=== PATIENT | female | born 1940 ===

== ENCOUNTER 2018-05-27 03:11 | Inpatient (IN) | payer MEDICARE, OTHER ==
[2018-05-27 03:11] VITALS: BMI 22.3
--- NOTE | 2018-05-27 03:30 | C.PDOC ---
History Of Present Illness 77 year old female presents to the ER with daughter for a complaint of generalized weakness and nausea for the past few days. As per daughter, patient was admitted to the hospital for back pain and discharged on 05/12/18, since then she has had increasing generalized weakness and poorly controlled BP. She saw her PMD on 05/20/18 who advised her to continue her current medications. Denies chest pain, SOB, fever, chills, or Hx of anxiety. Time Seen by Provider: 05/27/18 03:30 Chief Complaint (Nursing): High Blood Pressure History Per: Patient History/Exam Limitations: no limitations Onset/Duration Of Symptoms: Days Current Symptoms Are (Timing): Still Present Associated Symptoms: Other (Nausea) Quality Of Symptoms: Asymptomatic Exacerbating Factor(s): Pos: None Recent travel outside of the [place]: No Past Medical History Reviewed: Historical Data, Nursing Documentation, Vital Signs Vital Signs: Last Vital Signs Temp 97.6 F 05/27/18 03:20 Pulse 93 H 05/27/18 03:20 Resp 16 05/27/18 03:20 BP 221/80 H 05/27/18 03:20 Pulse Ox 99 05/27/18 03:20 - Medical History PMH: Back Problems, Bronchitis, HTN, Hypercholesterolemia, Hypothyroidism, TIA Denies: HIV, Chronic Kidney Disease Surgical History: Appendectomy - [facility] Procedures ENDOSC POLYPECTOMY OF LG INTEST (08/12/13) ESOPHAGOGASTRODUODENOSCOPY [EGD] W/CLOSED BIOPSY (08/05/13) INJECT/INFUSE NEC (01/09/14) ULTRASONOGRAPHY OF RIGHT AND LEFT HEART, TRANSESOPHAGEAL (05/09/18) Family History: States: Unknown Family Hx - Social History Hx Alcohol Use: No Hx Substance Use: No - Immunization History Hx Tetanus Toxoid Vaccination: No Hx Influenza Vaccination: Yes Hx Pneumococcal Vaccination: Yes Review Of Systems Constitutional: Positive for: Weakness. Negative for: Fever, Chills Eyes: Negative for: Pain, Vision Change ENT: Negative for: Ear Pain, Throat Pain Cardiovascular: Negative for: Chest Pain, Palpitations Respiratory: Negative for: Cough, Shortness of Breath, SOB with Excertion, Pleuritic Pain, Sputum Gastrointestinal: Positive for: Nausea. Negative for: Vomiting, Abdominal Pain, Diarrhea, Constipation, Melena, Hematochezia, Hematemesis Genitourinary: Negative for: Dysuria, Hematuria Skin: Negative for: Rash, Jaundice Neurological: Positive for: Weakness. Negative for: Numbness, Incoordination, Change in Speech, Confusion, Seizures, Altered Mental Status, Headache Psych: Negative for: Depression, Psychosis Physical Exam - Physical Exam Appears: Well, Non-toxic Skin: Normal Color, Warm, Dry Head: Atraumatic, Normacephalic Eye(s): bilateral: Normal Inspection, PERRL, EOMI Ear(s): Bilateral: Normal Nose: Normal Oral Mucosa: Moist Tongue: Normal Appearing Lips: Normal Appearing Neck: Normal, Normal ROM, No Midline Cervical Tenderness, No Paracervical Tenderness, Supple, Other (no meningeal signs) Chest: Symmetrical, No Tenderness Cardiovascular: Rhythm Regular Respiratory: Normal Breath Sounds, No Rales, No Rhonchi, No Wheezing Gastrointestinal/Abdominal: Normal Exam, Soft, No Tenderness, No Organomegaly, No Mass, No Distention, No Guarding Back: No CVA Tenderness Extremity: Normal ROM (x4), No Tenderness, No Calf Tenderness Extremity: Bilateral: Atraumatic Neurological/Psych: Oriented x3, Normal Speech, Normal Cognition, Normal Cranial Nerves, No Cerebellar Signs, Normal Motor, Normal Sensation Other Neurological Findings: No Facial Palsy Extremity: Right: No Drift, Left: No Drift, Upper: No Drift, Lower: No Drift ED Course And Treatment - Laboratory Results Result Diagrams: 05/27/18 04:41 O2 Sat by Pulse Oximetry: 99 (Room air) Pulse Ox Interpretation: Normal - CT Scan/US CT Head Other Rad Studies (CT/US): Read By Radiologist, Radiology Report Reviewed CT/US Interpretation: CT scan of the head. CLINICAL HISTORY: Headache. Dizziness. TECHNIQUE: Multiple axial CT images were obtained through the brain without IV contrast material. COMMENTS: 3.2x2.1 cm uncomplicated left temporal arachnoid cyst. There is normal configuration of sella turcica. There are no i ntra or extra-axial collections. There is no mass effect or midline shift. There is no evidence of hematoma formation. No hydrocephalus is present. The ventricles are symmetrical. No abnormal calcifications are present. There is diffuse age-appropriate cerebellar and cerebral atrophy with proportionally dilated ventricles and cortical sulci. There are bilateral periventricular and subcortical white matter hypolucencies compatible with mild chronic microvascular disease. Otherwise, no significant focal abnormalities are seen either in the posterior fossa or supratentorial compartment. IMPRESSION: 1. Age-appropriate cerebellar and cerebral atrophy. 2. Mild chronic microvascular disease. Uncomplicated left temporal arachnoid cyst. 3. No evidence of acute intracranial pathology. Medical Decision Making Medical Decision Makin yr old female w/ hx of TIA, Hypok weakness, HTN, HLD p/w diffuse weakness. No one sided weakness or slurred speech. No slurred speech. Per daughter and pt this has occured previously and pt was diagnosed with hypok weakness. She denies any CP, sob, and only notes mild lightheadedness. Weakness is not upgoing or downgoing. No abnl finger to nose. Blood work, CXR, CT head, flu swab, and urinalysis ordered. Antivert and labetalol administered. 0544 CT unremarkable XR unremarkable. labs largley unremarkable abd remain non-ttp, pt however states she is still to weak to stand. When prompted: Pt is noted to be anti gravity with 4/5 strength in all extremities. No CVAT appreciate consult w/ Dr. Dela Cruz: no admitting privileges at [facility] appreciate consult w/ Dr. Loyola: to admit to his service, endorsed pending Disposition - Disposition Disposition Time: 05:51 Condition: GOOD Instructions: Weakness (ED) Forms: [facility] (Singaporean) - Clinical Impression Clinical Impression: Weakness - Scribe Statement The provider has reviewed the documentation as recorded by the Scribe Honorio Kathleen All medical record entries made by the Scribe were at my direction and persona lly dictated by me. I have reviewed the chart and agree that the record accurately reflects my personal performance of the history, physical exam, medical decision making, and the department course for this patient. I have also personally directed, reviewed, and agree with the discharge instructions and disposition.
[2018-05-27] MEDS ORDERED: Labetalol 25mg/5ml Syringe IVP STA (03:44)
[2018-05-27] MEDS ORDERED: Labetalol 5mg/ml (4ml) ONE (03:56)
[2018-05-27 04:36] LABS: TROPONIN I 0.019 ng/mL (0.00-0.120)
[2018-05-27 04:37] LABS: VENOUS BLOOD GAS BASE EXCESS 5.4 mmol/L (0.0-2.0); VENOUS BLOOD GAS PCO2 24 mmHg (40-60); VENOUS BLOOD GAS PO2 36 mm/Hg (30-55); VENOUS BLOOD PH 7.63 (7.32-7.43)
[2018-05-27 04:44] LABS: BASO % 0.5 % (0.0-2.0); EOS # 0.1 K/uL (0.0-0.7); EOS % 1.4 % (0.0-4.0); HEMOGLOBIN 13.3 g/dL (11.0-16.0); LYMPH # 1.6 K/uL (1.0-4.3); LYMPH % 26.5 % (20.0-40.0); MEAN CELL VOLUME 82.6 fL (81.0-99.0); MEAN CORPUSCULAR HEMOGLOBIN 28.6 pg (27.0-31.0); MEAN CORPUSCULAR HGB CONC 34.6 g/dL (33.0-37.0); MEAN PLATELET VOLUME 8.6 fL (7.2-11.7); MONO # 0.4 K/uL (0.0-0.8); MONO % 7.3 % (0.0-10.0); NEUT # 3.9 K/uL (1.8-7.0); NEUT % 64.3 % (50.0-75.0); RBC 4.66 Mil/uL (3.80-5.20); RED CELL DISTRIBUTION WIDTH 13.9 % (11.5-14.5); WHITE BLOOD COUNT 6.1 K/uL (4.8-10.8)
[2018-05-27 06:09] LABS: SQUAMOUS EPITHIAL < 1 /hpf (0-5); URINE BACTERIA RARE (<OCC); URINE BILIRUBIN NEGATIVE (NEGATIVE); URINE BLOOD NEGATIVE (NEGATIVE); URINE CLARITY Hazy (Clear); URINE COLOR Straw (YELLOW); URINE GLUCOSE (UA) NORMAL (Normal); URINE LEUKOCYTE ESTERASE NEG Leu/uL (Negative); URINE PROTEIN NEGATIVE (NEGATIVE); URINE UROBILINOGEN NORMAL mg/dL (0.2-1.0)
--- NOTE | 2018-05-27 07:32 | RAD ---
Date of service: 05/27/2018 HISTORY: htn COMPARISON: None available. FINDINGS: LUNGS: No active pulmonary disease. PLEURA: No significant pleural effusion identified, no pneumothorax apparent. CARDIOVASCULAR: No aortic atherosclerotic calcification present. Normal cardiac size. No pulmonary vascular congestion. OSSEOUS STRUCTURES: Nonspecific sclerotic density proximal right humeral diaphysis, possibly endosteal. VISUALIZED UPPER ABDOMEN: Normal. OTHER FINDINGS: None. IMPRESSION: No acute cardiopulmonary disease appreciable.
--- NOTE | 2018-05-27 08:24 | CP.PCM.PN ---
Subjective - Date & Time of Evaluation Date of Evaluation: 05/27/18 Time of Evaluation: 09:00 - Subjective Subjective: Ms. Truong is a 77 year old female with a PMHx of TIA, HTN, Hypokalemia, HLD, Hypothyroidism, and PFO who presents with complaints of generalized weakness (prominent in extremities), Nausea, Dizziness, and 1 tremor episode since 05/09/18. Associated symptoms include low appetite, 1 episode of NBNB vomiting, and tremors. Patient also admits to losing 6-8 lbs in the last 3 weeks. Patient's daughter took BP at home and found it to be elevated at 196/96 post her BP meds. Patient is normally able to do all her ADL's and IADL's. She does not walk without any assisted device Today, patient still complains of generalized weakness and dizziness. She denies any Chest pain, Headache, Palpitations, shortness of breath, abdominal pain, changes in bowel habits, or urinary symptoms. PMHx: As stated above PSHx: Polypectomy (2013), Endoscopy (2012) Allergies: Codeine, Fentanyl, Morphine, Moxifloxacin, Shellfish derived Social Hx: Denies tobacco, EtoH or illicit drug use Hos: [facility] w/ Similar symptoms in April FamHx: Brother - HTN Meds: Per Sep. PMD: Dr. Arnav Hinkle Cardio: Dr. Zendejas Objective - Vital Signs/Intake and Output Vital Signs (last 24 hours): Temp Pulse Resp BP Pulse Ox 97.9 F 65 20 151/74 H 95 05/27/18 08:06 05/27/18 08:06 05/27/18 08:06 05/27/18 08:06 05/27/18 08:06 - Labs Labs: 05/27/18 04:41 - Constitutional Appears: Non-toxic, No Acute Distress - Head Exam Head Exam: ATRAUMATIC, NORMAL INSPECTION, NORMOCEPHALIC - Eye Exam Eye Exam: EOMI, Normal appearance - ENT Exam ENT Exam: Mucous Membranes Moist - Neck Exam Neck Exam: Normal Inspection. absent: Lymphadenopathy, Tenderness - Respiratory Exam Respiratory Exam: Accessory Muscle Use, Clear to Ausculation Bilateral, NORMAL BREATHING PATTERN. absent: Rhonchi, Wheezes - Cardiovascular Exam Cardiovascular Exam: RRR, +S1, +S2, Murmur - GI/Abdominal Exam GI & Abdominal Exam: Soft, Normal Bowel Sounds. absent: Tenderness, Organo megaly - Extremities Exam Extremities Exam: Normal Inspection. absent: Pedal Edema - Neurological Exam Neurological Exam: Alert, Awake, Oriented x3, Reflexes Normal. absent: Motor Sensory Deficit Neuro motor strength exam: Left Upper Extremity: 5, Right Upper Extremity: 5, Left Lower Extremity: 5, Right Lower Extremity: 5 - Psychiatric Exam Psychiatric exam: Normal Affect, Normal Mood - Skin Skin Exam: Dry, Intact, Normal Color, Warm Assessment and Plan - Assessment and Plan (Free Text) Assessment: 77 year old female with a PMHx of TIA, HTN, Hypokalemia, HLD, Hypothyroidism, and PFO admitted for evaluation and treatment of generalized weakness Plan: Failure to Thrive DDx: Malignancy vs Uncontrolled Hypothyrodism EKG (Admission): NSR CXR (Admission): Negative Head CT (Admission): No acute intracranial hemorrhage. Mild-moderate chronic periventricular white matter ischemic changes. 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 Questionable versus tiny chronic lacunar-type infarct dilated perivascular space left inferior basal ganglia.. Questionable chronic ischemic changes within the brainstem and upper stormy. Note that the possibility of a small hyperacute infarct cannot be excluded. Moderate generalized volume loss. ED Course: Meclizine Once, Zofran ONce, Lavetalol ONCE, NPO GI Consulted (Dr. Welsh), Recs Appreciated -Tumor Markers Ordered, F/U Meds: NS @ 80mls/hr PFO Cardiology Consulted (Dr. Zendejas), Recs Appreciated Based on CLOSURE I trial, no need for intervention at this time. Meds: Rosuvastatin 5mg Daily ASA 81 Daily Labile HTN Cardiology Consulted (Dr. Zendejas), Recs Appreciated Losartan DC in setting of recent recall <50% ICA stenosis bilaterally per carotid U/S performed 04/30 Renal Artery Duplex: PENDING Meds: Start Amlodipine 10mg PO Daily Start Lisinopril 40mg PO Daily Hypothyroidism Elevated TSH (5.60) w/ normal Free T4 (1.12) Possible Cause of symptoms Consider increasing Synthroid Dosage Meds: Levothyroxine 50mcg Daily Dizziness Will Consider starting Meclizine vs Valium. Lower Back Pain Meds: Tramadol 25mg TID PRN. Proph Heparin NPO Patient seen and discussed with Attending (Dr. Abad Ness, PGY-2
[2018-05-27 09:05] LABS: ALB/GLOB RATIO 1.3 (1.0-2.1); ALBUMIN 4.2 g/dL (3.5-5.0); ALT/SGPT 41 U/L (9-52); AST/SGOT 63 U/L (14-36); BLOOD UREA NITROGEN 20 mg/dL (7-17); CALCIUM 9.8 mg/dl (8.6-10.4); GFR NON-AFRICAN AMERICAN > 60
[2018-05-27] MEDS: Levothyroxine 50 MCG TAB PO SCH (09:20)
[2018-05-27] MEDS: Sodium Chloride 0.9% 1,000 ML IV SCH ×2 (09:22→21:40)
[2018-05-27] MEDS ORDERED: Potassium Chloride 20 mEq ER Tab PO ONE (09:30)
--- NOTE | 2018-05-27 09:47 | CT ---
Date of service: 05/27/2018 PROCEDURE: CT HEAD WITHOUT CONTRAST. HISTORY: htn, dizzy COMPARISON: No prior study available for comparison TECHNIQUE: Axial computed tomography images were obtained through the head/brain without intravenous contrast. Radiation dose:. Total exam DLP = 856.94 mGy-cm. This CT exam was performed using one or more of the following dose reduction techniques: Automated exposure control, adjustment of the mA and/or kV according to patient size, and/or use of iterative reconstruction technique. FINDINGS: HEMORRHAGE: No intracranial hemorrhage. BRAIN: Mild-moderate chronic periventricular white matter ischemic changes. 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 Questionable versus tiny chronic lacunar-type infarct dilated perivascular space left inferior basal ganglia.. Questionable chronic ischemic changes within the brainstem and upper stormy. Note that the possibility of a small hyperacute infarct cannot be excluded. Moderate generalized volume loss. Vascular calcifications both carotid siphons and vertebral arteries. VENTRICLES: No obstructive hydrocephalus. CALVARIUM: No acute calvarial fractures. The. PARANASAL SINUSES: Minimal mucosal thickening noted within the frontal sinus as well as a few ethmoid air cells.. MASTOID AIR CELLS: Unremarkable as visualized. No inflammatory changes. OTHER FINDINGS: Changes of bilateral cataract surgery. IMPRESSION: No acute intracranial hemorrhage. Mild-moderate chronic periventricular white matter ischemic changes. 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 Questionable versus tiny chronic lacunar-type infarct dilated perivascular space left inferior basal ganglia.. Questionable chronic ischemic changes within the brainstem and upper stormy. Note that the possibility of a small hyperacute infarct cannot be excluded. Moderate generalized volume loss.
[2018-05-27] MEDS ORDERED: Tramadol 25 mg PO PRN (11:11)
--- NOTE | 2018-05-27 15:13 | CP.PCM.CON ---
History of Present Illness - History of Present Illness History of Present Illness: Lukas Amin, PGY-[address] Zendejas, Cardiology Ms. Truong is a pleasant [address] Zendejas with PMHx of Hypothroidism, HTN, HLD and TIA who presents with full body weakness for multiple days. Patient reports fatigue especially in all extremities. Patient reports, dizziness, diaphoresis, shakes, and nausea that prompted her to come in for evaluation. Patient denies current chest pain, palpitations, shortness of breath, leg swelling. Per echo report on 05/12/18, patient has small PFO with L to R shunt with EF of 55-60%. Mild MR and TR. Past Patient History - Infectious Disease Hx of Infectious Diseases: None - Past Medical History & Family History Past Medical History?: Yes - Past Social History Smoking Status: Never Smoked - CARDIAC Hx Cardiac Disorders: Yes Hx Hypercholesterolemia: Yes Hx Hypertension: Yes - PULMONARY Hx Respiratory Disorders: Yes Hx Bronchitis: Yes - NEUROLOGICAL Hx Neurological Disorder: Yes Hx Transient Ischemic Attacks (TIA): Yes - HEENT Hx HEENT Problems: Yes Other/Comment: Episodes of ON and Off of lossing half of her R visual brandon after the TIA - RENAL Hx Chronic Kidney Disease: No - ENDOCRINE/METABOLIC Hx Endocrine Disorders: Yes Hx Hypothyroidism: Yes - HEMATOLOGICAL/ONCOLOGICAL Hx Blood Disorders: No Hx Human Immunodeficiency Virus (HIV): No - INTEGUMENTARY Hx Dermatological Problems: No - MUSCULOSKELETAL/RHEUMATOLOGICAL Hx Musculoskeletal Disorders: Yes Hx Back Pain: Yes Hx Falls: No - GASTROINTESTINAL Hx Gastrointestinal Disorders: No - GENITOURINARY/GYNECOLOGICAL Hx Genitourinary Disorders: No - PSYCHIATRIC Hx Psychophysiologic Disorder: No Hx Substance Use: No - SURGICAL HISTORY Hx Surgeries: Yes Hx Appendectomy: Yes - ANESTHESIA Hx Anesthesia: Yes Hx Anesthesia Reactions: No Hx Malignant Hyperthermia: No Has any member of the family had a problem w/ anesthesia?: No Meds Allergies/Adverse Reactions: Allergies Allergy/AdvReac Type Severity Reaction Status Date / Time codeine Allergy DIZZINESS Verified 05/27/18 03:24 fentanyl Allergy DIZZINESS Verified 05/27/18 03:24 morphine Allergy DIZZINESS Verified 05/27/18 03:24 moxifloxacin HCl Allergy RASH Verified 05/27/18 03:24 [From Avelox] shellfish derived Allergy ANAPHYLAXIS Verified 05/27/18 03:24 - Medications Medications: Current Medications Heparin Sodium (Porcine) (Heparin) 5,000 units SC Q12 [facility] Last Admin: 05/27/18 09:20 Dose: 5,000 units Sodium Chloride (Sodium Chloride 0.9%) 1,000 mls @ 80 mls/hr IV .[id number] [facility] Last Admin: 05/27/18 09:22 Dose: 80 mls/hr Levothyroxine Sodium (Synthroid) 50 mcg PO DAILY [facility] Last Admin: 05/27/18 09:20 Dose: 50 mcg Losartan Potassium (Cozaar) 50 mg PO BID [facility] Last Admin: 05/27/18 09:24 Dose: Not Given Tramadol HCl (Ultram) 25 mg PO TID PRN PRN Reason: Pain, (0-10) Physical Exam - Constitutional Appears: Non-toxic, No Acute Distress, Cachectic - Head Exam Head Exam: ATRAUMATIC, NORMOCEPHALIC - Eye Exam Eye Exam: EOMI, Normal appearance - ENT Exam ENT Exam: Mucous Membranes Moist - Respiratory Exam Respiratory Exam: Decreased Breath Sounds, Clear to Auscultation Bilateral. absent: Rales, Rhonchi, Wheezes - Cardiovascular Exam Cardiovascular Exam: RRR, +S1, +S2 - GI/Abdominal Exam GI & Abdominal Exam: Soft - Extremities Exam Extremities exam: Negative for: pedal edema - Back Exam Back exam: absent: CVA tenderness (L), CVA tenderness (R) - Neurological Exam Neurological exam: Alert Results - Vital Signs Recent Vital Signs: Last Vital Signs Temp 97.9 F 05/27/18 08:06 Pulse 65 05/27/18 08:06 Resp 20 05/27/18 08:06 BP 151/74 H 05/27/18 08:06 Pulse Ox 95 05/27/18 08:06 - Labs Result Diagrams: 05/27/18 04:41 05/27/18 05:03 Labs: Laboratory Results - last 24 hr 05/27/18 05/27/18 05/27/18 03:24 03:44 04:06 WBC RBC Hgb Hct MCV MCH MCHC RDW Plt Count MPV Neut % (Auto) Lymph % (Auto) [place] % (Auto) Eos % (Auto) Baso % (Auto) Neut # (Auto) Lymph # (Auto) [place] # (Auto) Eos # (Auto) Baso # (Auto) pO2 VBG pH VBG pCO2 VBG HCO3 VBG Total CO2 VBG O2 Sat (Calc) VBG Base Excess VBG Potassium Sodium Chloride Glucose Lactate Potassium Carbon Dioxide Anion Gap BUN Creatinine Est GFR ( Amer) Est GFR (Non-Af Amer) POC Glucose (mg/dL) 141 H Random Glucose Hemoglobin A1c Calcium Magnesium Total Bilirubin AST ALT Alkaline Phosphatase Troponin I 0.0190 Total Protein Albumin Globulin Albumin/Globulin Ratio Lipase 117 Free T4 TSH 3rd Generation 5.60 H Venous Blood Potassium Urine Color Urine Clarity Urine pH Ur Specific [place] Urine Protein Urine Glucose (UA) Urine Ketones Urine Blood Urine Nitrate Urine Bilirubin Urine Urobilinogen Ur Leukocyte Esterase Urine WBC (Auto) Urine RBC (Auto) Ur Squamous Epith Cells Urine Bacteria Influenza Typ A,B (EIA) Negative for flu a/b 05/27/18 05/27/18 05/27/18 04:15 04:41 05:03 WBC 6.1 RBC 4.66 Hgb 13.3 Hct 38.5 MCV 82.6 MCH 28.6 MCHC 34.6 RDW 13.9 Plt Count 233 MPV 8.6 Neut % (Auto) 64.3 Lymph % (Auto) 26.5 [place] % (Auto) 7.3 Eos % (Auto) 1.4 Baso % (Auto) 0.5 Neut # (Auto) 3.9 Lymph # (Auto) 1.6 [place] # (Auto) 0.4 Eos # (Auto) 0.1 Baso # (Auto) 0.0 pO2 36 VBG pH 7.63 H VBG pCO2 24 L VBG HCO3 28.7 VBG Total CO2 25.9 VBG O2 Sat (Calc) 83.2 H VBG Base Excess 5.4 H VBG Potassium 3.4 L Sodium 139.0 140 Chloride 103.0 100 Glucose 144 H Lactate 2.1 Potassium 3.5 L Carbon Dioxide 28 Anion Gap 15 BUN 20 H Creatinine 0.8 Est GFR ( Amer) > 60 Est GFR (Non-Af Amer) > 60 POC Glucose (mg/dL) Random Glucose 141 H Hemoglobin A1c Calcium 9.8 Magnesium 2.5 H Total Bilirubin 0.5 AST 63 H D ALT 41 Alkaline Phosphatase 86 Troponin I Total Protein 7.5 Albumin 4.2 Globulin 3.3 Albumin/Globulin Ratio 1.3 Lipase Free T4 TSH 3rd Generation Venous Blood Potassium 3.4 L Urine Color Urine Clarity Urine pH Ur Specific [place] Urine Protein Urine Glucose (UA) Urine Ketones Urine Blood Urine Nitrate Urine Bilirubin Urine Urobilinogen Ur Leukocyte Esterase Urine WBC (Auto) Urine RBC (Auto) Ur Squamous Epith Cells Urine Bacteria Influenza Typ A,B (EIA) 05/27/18 05/27/18 05/27/18 05:59 13:50 13:50 WBC RBC Hgb Hct MCV MCH MCHC RDW Plt Count MPV Neut % (Auto) Lymph % (Auto) [place] % (Auto) Eos % (Auto) Baso % (Auto) Neut # (Auto) Lymph # (Auto) [place] # (Auto) Eos # (Auto) Baso # (Auto) pO2 VBG pH VBG pCO2 VBG HCO3 VBG Total CO2 VBG O2 Sat (Calc) VBG Base Excess VBG Potassium Sodium Chloride Glucose Lactate Potassium Carbon Dioxide Anion Gap BUN Creatinine Est GFR ( Amer) Est GFR (Non-Af Amer) POC Glucose (mg/dL) Random Glucose Hemoglobin A1c 5.6 Calcium Magnesium Total Bilirubin AST ALT Alkaline Phosphatase Troponin I Total Protein Albumin Globulin Albumin/Globulin Ratio Lipase Free T4 1.12 TSH 3rd Generation Venous Blood Potassium Urine Color Straw Urine Clarity Hazy Urine pH 8.0 Ur Specific [place] 1.005 Urine Protein Negative Urine Glucose (UA) Normal Urine Ketones Negative Urine Blood Negative Urine Nitrate Negative Urine Bilirubin Negative Urine Urobilinogen Normal Ur Leukocyte Esterase Neg Urine WBC (Auto) 1 Urine RBC (Auto) 1 Ur Squamous Epith Cells < 1 Urine Bacteria Rare Influenza Typ A,B (EIA) Assessment & Plan - Assessment and Plan (Free Text) Assessment: 77 F with PMHx HTN, HLD and PFO recognzied s/p cryptogenic TIA who presents with full body fatigue and labile blood pressures. Labile HTN vitals q2 to keep log of BP stop Losartan in setting of recent recall, replace with Amlodipine 10 mg PO and Lisinopril 40 mg PO F/u renal artery duplex study <50% ICA stenosis bilaterally per carotid U/S performed 04/30 EKG NSR @ 89 bpm, no ST wave changes on prelim. read, f/u final read PFO Based on CLOSURE I trial, no need for intervention at this time. Begin Aspirin 81 mg daily, Rosuvastatin 5 mg daily Patient seen, case reviewed and plan approved by Dr. Zendejas. Further recs per Dr. Zendejas. Lukas Amin, PGY-1
[2018-05-28 07:43] LABS: BASO % 0.5 % (0.0-2.0); EOS # 0.1 K/uL (0.0-0.7); LYMPH # 1.1 K/uL (1.0-4.3); LYMPH % 23.8 % (20.0-40.0); MEAN CELL VOLUME 83.7 fL (81.0-99.0); MEAN CORPUSCULAR HEMOGLOBIN 28.7 pg (27.0-31.0); MEAN CORPUSCULAR HGB CONC 34.3 g/dL (33.0-37.0); MEAN PLATELET VOLUME 8.3 fL (7.2-11.7); MONO # 0.3 K/uL (0.0-0.8); MONO % 7.6 % (0.0-10.0); NEUT % 66.1 % (50.0-75.0); RBC 4.18 Mil/uL (3.80-5.20); RED CELL DISTRIBUTION WIDTH 14.1 % (11.5-14.5); WHITE BLOOD COUNT 4.5 K/uL (4.8-10.8)
[2018-05-28 07:46] LABS: INR 1.1; PROTHROMBIN TIME 12.1 SECONDS (9.7-12.2)
[2018-05-28 08:31] LABS: ALB/GLOB RATIO 1.4 (1.0-2.1); ALBUMIN 3.8 g/dL (3.5-5.0); ALT/SGPT 35 U/L (9-52); AST/SGOT 40 U/L (14-36); BLOOD UREA NITROGEN 13 mg/dL (7-17); CALCIUM 8.9 mg/dl (8.6-10.4); GFR NON-AFRICAN AMERICAN > 60
[2018-05-28] MEDS: Levothyroxine 50 MCG TAB PO SCH (10:00)
[2018-05-28] MEDS: Sodium Chloride 0.9% 1,000 ML IV SCH ×2 (10:00→21:29)
[2018-05-28] MEDS ORDERED: Lactated Ringer's 1,000 ML IV ONE (10:45)
[2018-05-28] MEDS ORDERED: Propofol 10 mg/ml Inj (20 ML) ONE (10:47)
--- NOTE | 2018-05-28 12:53 | CARD ---
APPROVED REPORT Date of service: 05/27/2018 EKG Measurement Heart [id number] CO [id number] <Conclusion> Normal sinus rhythm Normal ECG
[2018-05-28] MEDS ORDERED: Peg-Electrolyte Oral Soln 4L (Golytely) PO ONE (13:00)
--- NOTE | 2018-05-28 13:35 | CP.PCM.PN ---
Subjective - Date & Time of Evaluation Date of Evaluation: 05/28/18 Time of Evaluation: 13:35 - Subjective Subjective: PGY2 Progress note for Dr. Loyola Patient was seen and examined at bedside in no acute distress. Patient reports feeling weak, abdominal pain, and loss of appetite for 2+ months. She also states she lost about 8 lbs. The patient denies chest pain, palpitations, dyspnea, cough, nausea, vomiting, fevers, headaches, dysuria, and diarrhea. Objective - Vital Signs/Intake and Output Vital Signs (last 24 hours): Temp Pulse Resp BP Pulse Ox 98.5 F 76 15 125/98 H 99 05/28/18 11:02 05/28/18 11:32 05/28/18 11:32 05/28/18 11:32 05/28/18 11:32 Intake and Output: 05/28/18 05/28/18 06:59 18:59 Intake Total 640 Balance 640 - Medications Medications: Current Medications Amlodipine Besylate (Norvasc) 10 mg PO DAILY [facility] Last Admin: 05/28/18 10:00 Dose: 10 mg Aspirin (Aspirin Chewable) 81 mg PO DAILY [facility] Last Admin: 05/28/18 10:01 Dose: Not Given Bisacodyl (Dulcolax) 10 mg PO ONCE ONE Stop: 05/28/18 17:01 Fluconazole (Diflucan) 100 mg PO DAILY [facility]; Protocol Last Admin: 05/28/18 12:40 Dose: 100 mg Heparin Sodium (Porcine) (Heparin) 5,000 units SC Q12 [facility] Last Admin: 05/28/18 10:01 Dose: Not Given Sodium Chloride (Sodium Chloride 0.9%) 1,000 mls @ 80 mls/hr IV .[id number] [facility] Last Admin: 05/28/18 10:00 Dose: Not Given Levothyroxine Sodium (Synthroid) 50 mcg PO DAILY [facility] Last Admin: 05/28/18 10:00 Dose: Not Given Lisinopril (Zestril) 40 mg PO DAILY [facility] Last Admin: 05/28/18 10:00 Dose: 40 mg Metoclopramide HCl (Reglan) 5 mg IVP Q6H [facility] Last Admin: 05/28/18 12:40 Dose: 5 mg Rosuvastatin Calcium (Crestor) 5 mg PO HS [facility] Last Admin: 05/27/18 21:39 Dose: 5 mg Tramadol HCl (Ultram) 25 mg PO TID PRN PRN Reason: Pain, (0-10) - Labs Labs: 05/28/18 07:32 05/28/18 07:32 PT 12.1 SECONDS (9.7-12.2) 05/28/18 07:32 INR 1.1 05/28/18 07:32 APTT 39 SECONDS (21-34) H 05/28/18 07:32 - Constitutional Appears: No Acute Distress - Head Exam Head Exam: ATRAUMATIC, NORMAL INSPECTION - Eye Exam Eye Exam: EOMI, Normal appearance - ENT Exam ENT Exam: Mucous Membranes Moist - Respiratory Exam Respiratory Exam: Clear to Ausculation Bilateral, NORMAL BREATHING PATTERN. absent: Rales, Rhonchi, Wheezes, Respiratory Distress - Cardiovascular Exam Cardiovascular Exam: REGULAR RHYTHM, +S1, +S2, Murmur Assessment and Plan - Assessment and Plan (Free Text) Plan: 77 year old female with a PMHx of TIA, HTN, Hypokalemia, HLD, Hypothyroidism, and PFO admitted for evaluation and treatment of generalized weakness Failure to Thrive - DDx: Malignancy vs Uncontrolled Hypothyrodism EKG (Admission): NSR - CXR (Admission): Negative - Head CT (Admission): No acute intracranial hemorrhage. Mild-moderate chronic periventricular white matter ischemic changes. 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 Questionable versus tiny chronic lacunar-type infarct dilated perivascular space left inferior basal ganglia.. Questionable chronic ischemic changes within the brainstem and upper stormy. Note that the possibility of a small hyperacute infarct cannot be excluded. Moderate generalized volume loss. - ED Course: Meclizine Once, Zofran Once, Labetalol ONCE, NPO - GI Consulted (Dr. Welsh), Recs Appreciated * Tumor markers: f/u * s/p EGD: candidiasis esophagitis, small hiatal hernia, erthematous mucosa in antrum (biopsied), erythematous duodenopathy * started prilosec 40mg po dialy for 8 weeks, sucralfate 1 gm tablet po qid for 8 weeks, and diflucan 100 mg po. * Scheduled for colonoscopy on , 05/29/18. - NS @ 80mls/hr PFO - Cardiology Consulted (Dr. Zendejas), Recs Appreciated Based on CLOSURE I trial, no need for intervention at this time. Meds: Rosuvastatin 5mg Daily, ASA 81 Daily HTN - Cardiology Consulted (Dr. Zendejas), Recs Appreciated * Losartan DC in setting of recent recall - <50% ICA stenosis bilaterally per carotid U/S performed 04/30 - Renal Artery Duplex: PENDING Meds: * Start Amlodipine 10mg PO Daily * Start Lisinopril 40mg PO Daily Hypothyroidism - Elevated TSH (5.60) w/ normal Free T4 (1.12) - Meds: Levothyroxine 50mcg Daily Dizziness - Will Consider starting Meclizine vs Valium. Lower Back Pain - Renal duplex: f/u - Tramadol 25mg TID PRN. Prophylaxis - DVT: Heparin SC, SCDs - GI: prilosec 40mg po daily for 8 weeks - CLL, NPO after dinner for colonoscopy All medical management per Dr. Loyola.
[2018-05-28] MEDS ORDERED: Bisacodyl 5mg EC Tab PO ONE (17:00)
[2018-05-29 07:06] LABS: BASO % 0.5 % (0.0-2.0); EOS % 0.7 % (0.0-4.0); HEMOGLOBIN 12.7 g/dL (11.0-16.0); LYMPH # 1.4 K/uL (1.0-4.3); LYMPH % 22.3 % (20.0-40.0); MEAN CELL VOLUME 83.3 fL (81.0-99.0); MEAN CORPUSCULAR HEMOGLOBIN 28.8 pg (27.0-31.0); MEAN CORPUSCULAR HGB CONC 34.6 g/dL (33.0-37.0); MEAN PLATELET VOLUME 8.2 fL (7.2-11.7); MONO # 0.3 K/uL (0.0-0.8); MONO % 4.7 % (0.0-10.0); NEUT # 4.5 K/uL (1.8-7.0); NEUT % 71.8 % (50.0-75.0); RBC 4.42 Mil/uL (3.80-5.20); RED CELL DISTRIBUTION WIDTH 14.1 % (11.5-14.5); WHITE BLOOD COUNT 6.2 K/uL (4.8-10.8)
--- NOTE | 2018-05-29 07:49 | CP.PCM.PN ---
Subjective - Date & Time of Evaluation Date of Evaluation: 05/29/18 Time of Evaluation: 07:49 - Subjective Subjective: PGY2 Progress note for Dr. Loyola Patient was seen and examined at bedside in no acute distress. The patient states she feels weak, but no longer has abdominal pain. The patient denies chest pain, palpitations, dyspnea, cough, nausea, vomiting, fevers, headaches, dysuria, and diarrhea. Objective - Vital Signs/Intake and Output Vital Signs (last 24 hours): Temp Pulse Resp BP Pulse Ox 98.3 F 78 20 127/69 96 05/29/18 00:00 05/29/18 00:00 05/29/18 00:00 05/29/18 00:00 05/29/18 00:00 Intake and Output: 05/29/18 05/29/18 06:59 18:59 Intake Total 3240 640 Output Total 1500 Balance 1740 640 - Medications Medications: Current Medications Amlodipine Besylate (Norvasc) 10 mg PO DAILY [facility] Last Admin: 05/28/18 10:00 Dose: 10 mg Aspirin (Aspirin Chewable) 81 mg PO DAILY [facility] Last Admin: 05/28/18 10:01 Dose: Not Given Fluconazole (Diflucan) 100 mg PO DAILY [facility]; Protocol Last Admin: 05/28/18 12:40 Dose: 100 mg Heparin Sodium (Porcine) (Heparin) 5,000 units SC Q12 [facility] Last Admin: 05/28/18 21:27 Dose: 5,000 units Sodium Chloride (Sodium Chloride 0.9%) 1,000 mls @ 80 mls/hr IV .[id number] [facility] Last Admin: 05/28/18 21:29 Dose: 80 mls/hr Levothyroxine Sodium (Synthroid) 50 mcg PO DAILY [facility] Last Admin: 05/28/18 10:00 Dose: Not Given Lisinopril (Zestril) 40 mg PO DAILY [facility] Last Admin: 05/28/18 10:00 Dose: 40 mg Metoclopramide HCl (Reglan) 5 mg IVP Q6H [facility] Last Admin: 05/29/18 05:43 Dose: 5 mg Rosuvastatin Calcium (Crestor) 5 mg PO HS [facility] Last Admin: 05/28/18 21:26 Dose: 5 mg Tramadol HCl (Ultram) 25 mg PO TID PRN PRN Reason: Pain, (0-10) - Labs Labs: 05/29/18 06:53 05/28/18 07:32 PT 12.1 SECONDS (9.7-12.2) 05/28/18 07:32 INR 1.1 05/28/18 07:32 APTT 39 SECONDS (21-34) H 05/28/18 07:32 - Constitutional Appears: No Acute Distress - Head Exam Head Exam: ATRAUMATIC, NORMAL INSPECTION - Eye Exam Eye Exam: EOMI, Normal appearance - ENT Exam ENT Exam: Mucous Membranes Moist - Respiratory Exam Respiratory Exam: NORMAL BREATHING PATTERN. absent: Rales, Rhonchi, Wheezes, Respiratory Distress - Cardiovascular Exam Cardiovascular Exam: REGULAR RHYTHM, +S1, +S2 - GI/Abdominal Exam GI & Abdominal Exam: Soft, Normal Bowel Sounds. absent: Distended, Firm, Guarding, Tenderness - Extremities Exam Extremities Exam: Normal Inspection. absent: Pedal Edema, Tenderness - Neurological Exam Neurological Exam: Alert, Awake, Oriented x3 - Psychiatric Exam Psychiatric exam: Normal Affect, Normal Mood - Skin Skin Exam: Dry, Normal Color, Warm Assessment and Plan - Assessment and Plan (Free Text) Plan: 77 year old female with a PMHx of TIA, HTN, Hypokalemia, HLD, Hypothyroidism, and PFO admitted for evaluation and treatment of generalized weakness Failure to Thrive - DDx: Malignancy vs Uncontrolled Hypothyrodism - EKG (Admission): NSR - CXR (Admission): Negative - Head CT (Admission): No acute intracranial hemorrhage. Mild-moderate chronic periventricular white matter ischemic changes. 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 Questionable versus tiny chronic lacunar-type infarct dilated perivascular space left inferior basal ganglia.. Questionable chronic ischemic changes within the brainstem and upper stormy. Note that the possibility of a small hyperacute infarct cannot be excluded. Moderate generalized volume loss. - ED Course: Meclizine Once, Zofran Once, Labetalol ONCE, NPO - GI Consulted (Dr. Welsh), Recs Appreciated * Tumor markers: CA19-9: elevated 53.9; CEA 1.9; Ca 125 <5.5 * s/p EGD: candidiasis esophagitis, small hiatal hernia, erthematous mucosa in antrum (biopsied), erythematous duodenopathy * started prilosec 40mg po dialy for 8 weeks, sucralfate 1 gm tablet po qid for 8 weeks, and diflucan 100 mg po. * Scheduled for colonoscopy on 05/29/18- follow up results - NS @ 80mls/hr PFO - Cardiology Consulted (Dr. Zendejas), Recs Appreciated Based on CLOSURE I trial, no need for intervention at this time. Meds: Rosuvastatin 5mg Daily, ASA 81 Daily HTN - Cardiology Consulted (Dr. Zendejas), Recs Appreciated * Losartan DC in setting of recent recall - <50% ICA stenosis bilaterally per carotid U/S performed 04/30 - Renal Artery Duplex: PENDING Meds: * Start Amlodipine 10mg PO Daily * Start Lisinopril 40mg PO Daily Hypothyroidism - Elevated TSH (5.60) w/ normal Free T4 (1.12) - Meds: Levothyroxine 50mcg Daily Dizziness - Will Consider starting Meclizine vs Valium. Lower Back Pain - Renal duplex: f/u - Tramadol 25mg TID PRN. Prophylaxis - DVT: Heparin SC, SCDs - GI: prilosec 40mg po daily for 8 weeks - CLL, NPO after dinner for colonoscopy All medical management per Dr. Loyola.
[2018-05-29 08:15] LABS: ALB/GLOB RATIO 1.3 (1.0-2.1); ALT/SGPT 36 U/L (9-52); AST/SGOT 45 U/L (14-36); BLOOD UREA NITROGEN 8 mg/dL (7-17); CALCIUM 8.7 mg/dl (8.6-10.4); GFR NON-AFRICAN AMERICAN > 60
--- NOTE | 2018-05-29 09:18 | HP ---
HISTORY OF PRESENT ILLNESS: 77 year-old female chief complaint weakness, fatigue, tiredness. The patient came to the ER, advised admission., evaluation, bit nausea. PHYSICAL EXAMINATION: GENERAL: The patient is awake, alert, and oriented. VITAL SIGNS: Temperature 98, pulse 90. HEENT: Within normal limits. NECK: Supple. CHEST: Symmetrical. HEART: Regular. ABDOMEN: Soft. EXTREMITIES: No edema. ASSESSMENT AND PLAN: Patient suffers from Gastritis, weakness. The patient needs supportive care. Chirag Loyola MD
[2018-05-29] MEDS: Levothyroxine 50 MCG TAB PO SCH (09:40)
[2018-05-29] MEDS ORDERED: Propofol 10 mg/ml Inj (20 ML) ONE (10:35)
[2018-05-29] MEDS ORDERED: Lactated Ringer's 500 ML IV ONE ×2 (10:36)
--- NOTE | 2018-05-29 12:08 | VASCLAB ---
Date of service: 05/28/2018 PROCEDURE: Renal Artery Duplex Scan HISTORY: Hypertension COMPARISON: None available. TECHNIQUE: Real-time ultrasonography evaluation of the renal arteries were performed. Comparison is made to the aorta. Report prepared by EWELINA Blair FINDINGS: AORTA: Patent. Peak systolic velocity 83 centimeters/second RIGHT RENAL ARTERY: Renal artery to aorta ratio: 2.2 * Proximal segment: Patent. Peak systolic velocity 145 centimeters/second * Mid segment: Patent. Peak systolic velocity 184 centimeters/second * Distal segment: Patent. Peak systolic velocity 155 centimeters/second Other findings: Right Kidney measures approximately 11.12 centimeters. LEFT RENAL ARTERY: Renal artery to aorta ratio: 1.7 * Proximal segment: Patent. Peak systolic velocity 132 centimeters/second * Mid segment: Patent. Peak systolic velocity 138 centimeters/second * Distal segment: Patent. Peak systolic velocity 114 centimeters/second Other findings: Left Kidney measures approximately 10.81 centimeters. IMPRESSION: No evidence of hemodynamically significant stenosis involving the renal arteries. Patent bilateral renal veins. Anechoic mass noted in the left kidney measuring 1.60 x 1.94 cm, possibly a cyst.
[2018-05-29] MEDS: Bisacodyl 5mg EC Tab PO SCH (12:19)
[2018-05-29] MEDS: Magnesium Citrate Oral SOL (300 ml) PO SCH ×2 (14:19→16:59)
[2018-05-29] MEDS ORDERED: Potassium Chloride 20 mEq/15 ml LIQ UD PO ONE (14:45)
--- NOTE | 2018-05-29 18:29 | CP.PCM.PN ---
Subjective - Date & Time of Evaluation Date of Evaluation: 05/29/18 Time of Evaluation: 18:28 - Subjective Subjective: feeling tired Objective - Vital Signs/Intake and Output Vital Signs (last 24 hours): Temp Pulse Resp BP Pulse Ox 98.1 F 72 20 109/65 96 05/29/18 16:00 05/29/18 16:00 05/29/18 16:00 05/29/18 16:00 05/29/18 16:00 Intake and Output: 05/29/18 05/29/18 06:59 18:59 Intake Total 3240 1580 Output Total 1500 Balance 1740 1580 - Medications Medications: Current Medications Amlodipine Besylate (Norvasc) 10 mg PO DAILY [facility] Last Admin: 05/29/18 12:22 Dose: 10 mg Aspirin (Aspirin Chewable) 81 mg PO DAILY [facility] Last Admin: 05/29/18 09:40 Dose: Not Given Bisacodyl (Dulcolax) 10 mg PO Q24H [facility] Last Admin: 05/29/18 12:19 Dose: 10 mg Fluconazole (Diflucan) 100 mg PO DAILY [facility]; Protocol Last Admin: 05/29/18 09:40 Dose: Not Given Heparin Sodium (Porcine) (Heparin) 5,000 units SC Q12 [facility] Last Admin: 05/28/18 21:27 Dose: 5,000 units Levothyroxine Sodium (Synthroid) 50 mcg PO 0630 [facility] Lisinopril (Zestril) 40 mg PO DAILY [facility] Last Admin: 05/29/18 12:22 Dose: 40 mg Magnesium Citrate (Citrate Of Mag) 60 ml PO TID [facility] Last Admin: 05/29/18 16:59 Dose: 60 ml Metoclopramide HCl (Reglan) 5 mg IVP Q6H [facility] Last Admin: 05/29/18 16:59 Dose: Not Given Rosuvastatin Calcium (Crestor) 5 mg PO HS [facility] Last Admin: 05/28/18 21:26 Dose: 5 mg Tramadol HCl (Ultram) 25 mg PO TID PRN PRN Reason: Pain, (0-10) - Labs Labs: 05/29/18 06:53 05/29/18 06:53 PT 12.1 SECONDS (9.7-12.2) 05/28/18 07:32 INR 1.1 05/28/18 07:32 APTT 39 SECONDS (21-34) H 05/28/18 07:32 - Constitutional Appears: Well - Head Exam Head Exam: ATRAUMATIC, NORMAL INSPECTION, NORMOCEPHALIC - Eye Exam Eye Exam: EOMI, Normal appearance, PERRL Pupil Exam: NORMAL ACCOMODATION, PERRL - ENT Exam ENT Exam: Mucous Membranes Moist, Normal Exam - Neck Exam Neck Exam: Full ROM, Normal Inspection. absent: Lymphadenopathy - Respiratory Exam Respiratory Exam: Clear to Ausculation Bilateral, NORMAL BREATHING PATTERN - Cardiovascular Exam Cardiovascular Exam: REGULAR RHYTHM, +S1, +S2. absent: Murmur - GI/Abdominal Exam GI & Abdominal Exam: Soft, Normal Bowel Sounds. absent: Tenderness - Extremities Exam Extremities Exam: Full ROM, Normal Capillary Refill, Normal Inspection. absent: Joint Swelling, Pedal Edema - Back Exam Back Exam: NORMAL INSPECTION - Neurological Exam Neurological Exam: Alert, Awake, CN II-XII Intact, Normal Gait, Oriented x3 - Psychiatric Exam Psychiatric exam: Normal Affect, Normal Mood - Skin Skin Exam: Dry, Intact, Normal Color, Warm Assessment and Plan (1) Weakness Status: Acute (2) Septal defect Status: Acute (3) Uncontrolled hypertension Status: Acute (4) Dyslipidemia Status: Chronic (5) HTN (hypertension) Status: Chronic
[2018-05-30] MEDS: Levothyroxine 50 MCG TAB PO SCH (05:44)
[2018-05-30 06:34] LABS: BASO % 0.9 % (0.0-2.0); EOS # 0.1 K/uL (0.0-0.7); EOS % 1.4 % (0.0-4.0); HEMOGLOBIN 12.1 g/dL (11.0-16.0); LYMPH % 18.3 % (20.0-40.0); MEAN CELL VOLUME 83.1 fL (81.0-99.0); MEAN CORPUSCULAR HEMOGLOBIN 29.1 pg (27.0-31.0); MEAN PLATELET VOLUME 8.4 fL (7.2-11.7); MONO # 0.6 K/uL (0.0-0.8); NEUT # 3.9 K/uL (1.8-7.0); NEUT % 69.4 % (50.0-75.0); RBC 4.17 Mil/uL (3.80-5.20); RED CELL DISTRIBUTION WIDTH 14.2 % (11.5-14.5); WHITE BLOOD COUNT 5.6 K/uL (4.8-10.8)
[2018-05-30 06:47] LABS: ALBUMIN 3.7 g/dL (3.5-5.0); BLOOD UREA NITROGEN 9 mg/dL (7-17); CALCIUM 8.8 mg/dl (8.6-10.4); GFR NON-AFRICAN AMERICAN > 60
[2018-05-30 06:48] LABS: ALB/GLOB RATIO 1.3 (1.0-2.1); ALT/SGPT 34 U/L (9-52); AST/SGOT 39 U/L (14-36)
[2018-05-30] MEDS: Magnesium Citrate Oral SOL (300 ml) PO SCH ×3 (09:36→17:05)
[2018-05-30] MEDS: Bisacodyl 5mg EC Tab PO SCH (10:59)
--- NOTE | 2018-05-30 11:53 | PN ---
DATE: 05/30/2018 LOCATION: 356, bed A. 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 The entire chart is reviewed including, but not limited to the most recent lab and radiology study results, current and the previous medication list, current and the previous medical events and today's lab results showed normal CBC with AST elevated at 39. PHYSICAL EXAMINATION: GENERAL: A 77-year-old female, afebrile with pulse of 74, respiratory rate 20-22, blood pressure 120/68. HEENT: Showed dry oral mucous membrane. Nonicteric sclerae. LUNGS: Few scattered crepitation. Decreased air entry at bases. HEART: Positive S1 and S2. ABDOMEN: Soft with mild generalized tenderness. No mass or organomegaly. No rebound tenderness or guarding. EXTREMITIES: Without significant clubbing, cyanosis or edema. NEUROLOGIC: No reported new neurological deficits, sensory or motor. The patient is still complaining of generalized weakness with less oral intake as well as intermittent period of abdominal pain with mild dyspepsia. No reported chest pain, palpitation or significant shortness of breath. IMPRESSION: 1. Peptic ulcer disease. 2. Change of bowel movement habit of unclear etiology. 3. Known history of, but not limited to hyperlipidemia, hypertension, hypothyroidism, transient ischemic attack as well as chronic lower back pain syndrome. SUGGESTIONS: 1. Agree with your plan. 2. The patient for repeat colonoscopy after more aggressive preparation. Further recommendation to follow. Zeb Girard MD
[2018-05-31] MEDS: Levothyroxine 50 MCG TAB PO SCH (06:38)
[2018-05-31 07:58] LABS: BASO % 0.7 % (0.0-2.0); EOS # 0.1 K/uL (0.0-0.7); EOS % 1.6 % (0.0-4.0); HEMOGLOBIN 12.6 g/dL (11.0-16.0); LYMPH % 22.9 % (20.0-40.0); MEAN CELL VOLUME 83.9 fL (81.0-99.0); MEAN CORPUSCULAR HEMOGLOBIN 28.9 pg (27.0-31.0); MEAN CORPUSCULAR HGB CONC 34.5 g/dL (33.0-37.0); MEAN PLATELET VOLUME 8.3 fL (7.2-11.7); MONO # 0.3 K/uL (0.0-0.8); NEUT % 68.8 % (50.0-75.0); NRBC % 0.1 % (0.0-2.0); RBC 4.37 Mil/uL (3.80-5.20); RED CELL DISTRIBUTION WIDTH 14.3 % (11.5-14.5); WHITE BLOOD COUNT 4.4 K/uL (4.8-10.8)
[2018-05-31 08:27] LABS: ALB/GLOB RATIO 1.3 (1.0-2.1); ALBUMIN 4.1 g/dL (3.5-5.0); ALT/SGPT 41 U/L (9-52); AST/SGOT 49 U/L (14-36); BLOOD UREA NITROGEN 7 mg/dL (7-17); GFR NON-AFRICAN AMERICAN > 60
[2018-05-31] MEDS: Magnesium Citrate Oral SOL (300 ml) PO SCH ×3 (09:24→17:12)
[2018-05-31] MEDS ORDERED: Peg-Electrolyte Oral Soln 4L (Golytely) PO ONE (10:00)
[2018-05-31] MEDS: Bisacodyl 5mg EC Tab PO SCH (10:39)
[2018-05-31] MEDS ORDERED: Potassium Chloride 20 mEq ER Tab PO ONE (12:30)
[2018-05-31] MEDS ORDERED: Bisacodyl 5mg EC Tab PO ONE (17:00)
[2018-06-01] MEDS: Levothyroxine 50 MCG TAB PO SCH (06:25)
--- NOTE | 2018-06-01 06:40 | CON ---
DATE: 05/27/2018 I was called up for GI consultation by the admitting medical staff. The patient is seen and fully examined on 05/27/[address] Loyola. A short handwritten consultation sheet was provided at the time of my consultation, in the chart, on 05/27/2018. The entire chart is reviewed including but not limited to the most recent lab and radiology study results, current and the previous medication list, current and the previous medical events, allergy to medication list as well as all the available current and the previous medical records were reviewed. HISTORY OF PRESENT ILLNESS: This is a 77-year-old female, who was admitted to hospital through the Emergency Room accompanied with her family with a main complaint of generalized weakness and malaise, persistent nausea, loss of appetite with decreased oral intake as well as change of bowel movement habit associated with chronic lower back pain syndrome, was found to have a recent history of poorly controlled blood pressure. The patient denied any actual chest pain, palpitation, significant shortness of breath, chills, or fever. PAST MEDICAL HISTORY: Including but not limited to, 1. Hypertension. 2. Hyperthyroidism. 3. Hyperlipidemia. 4. Bronchitis. 5. Reported TIA. 6. Chronic lower back pain syndrome. 7. Peptic ulcer disease. 8. Status post appendectomy. FAMILY HISTORY: Noncontributory. SOCIAL HISTORY: No known history of cigarette smoking or alcohol intake. CURRENT MEDICATIONS: Post admission medication lists were reviewed. ALLERGIES TO MEDICATIONS: UNKNOWN. DIAGNOSTIC DATA: Last colonoscopy as reported was done on 08/12/2013, with polypectomy. The patient had an upper endoscopy, the latest was reported to be on 08/05/2013. At the time of the admission, the patient was found to have; however, normal hemoglobin and hematocrit with CAT scan of the head was performed, report is seen. PHYSICAL EXAMINATION: GENERAL: A 77-year-old female appeared to be awake, alert, oriented, afebrile with pulse of 90, respiratory rate 18 to 20. The patient is afebrile with blood pressure of 200/84. HEENT: Showed mildly dry oral mucoid membrane. Nonicteric sclerae. LYMPH NODES: No lymphadenitis or lymphadenopathy. LUNGS: Few scattered crepitation. Decreased air entry at bases. HEART: Positive S1 and S2; increased rate. ABDOMEN: Soft with mild generalized tenderness. No mass or organomegaly. No rebound tenderness or guarding. NEUROLOGIC: No reported new neurological deficits, sensory or motor. IMPRESSION: 1. Re-exacerbation of peptic ulcer disease. 2. To rule out possible gastric versus duodenal ulcer. 3. Recent change of bowel movement habit of unclear etiology with known history of colon polyp. The patient will need repeat colonoscopy. 4. Multiple past medical histories as mentioned above including but not limited to hyperlipidemia, hypertension, hypothyroidism, bronchitis as well as transient ischemic attack and the chronic lower back pain syndrome. SUGGESTIONS: 1. Agree with your plan. 2. Sectional abdominal and pelvic CT scan. 3. Guaiac positive stools daily x3. 4. Endoscopic evaluation of the GI tract when the patient is more stable clinically. Abdominal ultrasound with attention to the biliary tree and pancreas. 5. Cancer markers. 6. Further recommendation to follow post endoscopic evaluation of the GI tract. Thank you for letting me participate in your patient's case management. Zeb Girard MD
[2018-06-01 07:02] LABS: BASO % 0.9 % (0.0-2.0); EOS # 0.1 K/uL (0.0-0.7); EOS % 1.7 % (0.0-4.0); HEMOGLOBIN 11.7 g/dL (11.0-16.0); LYMPH # 1.2 K/uL (1.0-4.3); LYMPH % 23.9 % (20.0-40.0); MEAN CELL VOLUME 83.2 fL (81.0-99.0); MEAN CORPUSCULAR HEMOGLOBIN 28.8 pg (27.0-31.0); MEAN CORPUSCULAR HGB CONC 34.7 g/dL (33.0-37.0); MEAN PLATELET VOLUME 8.2 fL (7.2-11.7); MONO # 0.4 K/uL (0.0-0.8); MONO % 8.8 % (0.0-10.0); NEUT # 3.2 K/uL (1.8-7.0); NEUT % 64.7 % (50.0-75.0); RBC 4.05 Mil/uL (3.80-5.20)
[2018-06-01 07:19] LABS: ALB/GLOB RATIO 1.3 (1.0-2.1); ALBUMIN 3.5 g/dL (3.5-5.0); ALT/SGPT 41 U/L (9-52); AST/SGOT 46 U/L (14-36); BLOOD UREA NITROGEN 7 mg/dL (7-17); GFR NON-AFRICAN AMERICAN > 60
--- NOTE | 2018-06-01 07:52 | PN ---
DATE: 05/31/2018 LOCATION 356, bed A. SUBJECTIVE: This is a 77-year-old female seen and examined in rounds without significant clinical changes or reported active bleeding, but intermittent period of change of bowel movement habit. No chest pain, palpitation, or reported significant increase of shortness of breath. The entire chart is reviewed including but not limited to the most recent lab and radiology study results, current and the previous medication list, current and the previous medical events. Today's lab results still pending. PHYSICAL EXAMINATION: GENERAL: A 77-year-old female. VITAL SIGNS: Afebrile with pulse of 80, respiratory rate 20 to 22, blood pressure 120/66. HEENT: Showed pale dry oral mucous membrane. Nonicteric sclerae. LUNGS: Few scattered crepitation. Decreased air entry at bases. HEART: Positive S1 and S2. ABDOMEN: Soft with mild generalized tenderness. No mass or organomegaly. No rebound tenderness or guarding. EXTREMITIES: With slight lower extremity edematous changes. No clubbing or cyanosis. NEUROLOGIC: No reported new neurological deficits, sensory or motor. 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 IMPRESSION: 1. Re-exacerbation of peptic ulcer disease. 2. Change of bowel movement habit. The patient for repeat colonoscopy tomorrow after more aggressive preparation. 3. Known history of but not limited to chronic lower back pain syndrome, hyperlipidemia, hypertension, transient ischemic attack, and hypothyroidism. SUGGESTION: 1. As above. 2. Continue current management. 3. The patient may need MRI of the head. Further recommendation to follow. Zeb Girard MD
[2018-06-01] MEDS: Magnesium Citrate Oral SOL (300 ml) PO SCH ×2 (09:29→13:53)
[2018-06-01] MEDS: Potassium Chloride 20 mEq ER Tab PO ONE ×2 (09:31→12:14)
[2018-06-01] MEDS ORDERED: Propofol 10 mg/ml Inj (20 ML) ONE (10:04)
[2018-06-01] MEDS ORDERED: Etomidate 20 mg/10ml Inj IV ONE (10:04)
[2018-06-01 10:05] VITALS: O2SAT 100
[2018-06-01] MEDS ORDERED: ePHEDrine 50 mg/ml Inj ONE (10:31)
[2018-06-01 10:45] VITALS: RESP 13; TEMP 98
[2018-06-01 11:10] VITALS: BP 117/47; PULSE 80
--- NOTE | 2018-06-01 11:44 | CP.PCM.PN ---
Subjective - Date & Time of Evaluation Date of Evaluation: 06/01/18 Time of Evaluation: 11:46 - Subjective Subjective: PGY3 Note for Dr. Arana patient seen and examined this AM; had colonoscopy this AM with Dr. Welsh who deemed patient safe for d/c as well as dr arana; patient has no complaints today. Objective - Vital Signs/Intake and Output Vital Signs (last 24 hours): Temp Pulse Resp BP Pulse Ox 98.0 F 80 13 117/47 L 100 06/01/18 10:25 06/01/18 10:55 06/01/18 10:55 06/01/18 10:55 06/01/18 10:55 Intake and Output: 06/01/18 06/01/18 06:59 18:59 Intake Total 1200 500 Balance 1200 500 - Medications Medications: Current Medications Amlodipine Besylate (Norvasc) 10 mg PO DAILY [facility] Last Admin: 06/01/18 09:31 Dose: Not Given Aspirin (Aspirin Chewable) 81 mg PO DAILY [facility] Last Admin: 06/01/18 09:29 Dose: Not Given Bisacodyl (Dulcolax) 10 mg PO Q24H [facility] Last Admin: 05/31/18 10:39 Dose: 10 mg Fluconazole (Diflucan) 100 mg PO DAILY [facility]; Protocol Last Admin: 06/01/18 09:29 Dose: Not Given Heparin Sodium (Porcine) (Heparin) 5,000 units SC Q12 [facility] Last Admin: 05/28/18 21:27 Dose: 5,000 units Levothyroxine Sodium (Synthroid) 50 mcg PO 0630 [facility] Last Admin: 06/01/18 06:25 Dose: 50 mcg Lisinopril (Zestril) 40 mg PO DAILY [facility] Last Admin: 06/01/18 09:31 Dose: Not Given Magnesium Citrate (Citrate Of Mag) 60 ml PO TID [facility] Last Admin: 06/01/18 09:29 Dose: Not Given Metoclopramide HCl (Reglan) 5 mg IVP Q6H [facility] Last Admin: 06/01/18 07:05 Dose: 5 mg Rosuvastatin Calcium (Crestor) 5 mg PO HS [facility] Last Admin: 05/31/18 21:05 Dose: 5 mg Tramadol HCl (Ultram) 25 mg PO TID PRN PRN Reason: Pain, (0-10) - Labs Labs: 06/01/18 06:43 06/01/18 06:43 PT 12.1 SECONDS (9.7-12.2) 05/28/18 07:32 INR 1.1 05/28/18 07:32 APTT 39 SECONDS (21-34) H 05/28/18 07:32 - Constitutional Appears: Non-toxic, Chronically Ill - Head Exam Head Exam: ATRAUMATIC - Eye Exam Eye Exam: EOMI - Neck Exam Neck Exam: Full ROM - Respiratory Exam Respiratory Exam: Clear to Ausculation Bilateral - Cardiovascular Exam Cardiovascular Exam: REGULAR RHYTHM - GI/Abdominal Exam GI & Abdominal Exam: Soft - Extremities Exam Extremities Exam: absent: Calf Tenderness - Back Exam Back Exam: absent: CVA tenderness (L), CVA tenderness (R) - Neurological Exam Neurological Exam: Awake - Psychiatric Exam Psychiatric exam: Normal Affect Assessment and Plan - Assessment and Plan (Free Text) Assessment: 77 year old female with a PMHx of TIA, HTN, Hypokalemia, HLD, Hypothyroidism, and PFO admitted for evaluation and treatment of generalized weakness Failure to Thrive - DDx: Malignancy vs Uncontrolled Hypothyrodism EKG (Admission): NSR - CXR (Admission): Negative - Head CT (Admission): No acute intracranial hemorrhage. Mild-moderate chronic periventricular white matter ischemic changes. 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 Questionable versus tiny chronic lacunar-type infarct dilated perivascular space left inferior basal ganglia.. Questionable chronic ischemic changes within the brainstem and upper stormy. Note that the possibility of a small hyperacute infarct cannot be excluded. Moderate generalized volume loss. - ED Course: Meclizine Once, Zofran Once, Labetalol ONCE, NPO - GI Consulted (Dr. Welsh), Recs Appreciated * Tumor markers: f/u * s/p EGD: candidiasis esophagitis, small hiatal hernia, erthematous mucosa in antrum (biopsied), erythematous duodenopathy * started prilosec 40mg po dialy for 8 weeks, sucralfate 1 gm tablet po qid for 8 weeks, and diflucan 100 mg po. * Scheduled for colonoscopy on , 05/29/18. - NS @ 80mls/hr PFO - Cardiology Consulted (Dr. Zendejas), Recs Appreciated Based on CLOSURE I trial, no need for intervention at this time. Meds: Rosuvastatin 5mg Daily, ASA 81 Daily HTN - Cardiology Consulted (Dr. Zendejas), Recs Appreciated * Losartan DC in setting of recent recall - <50% ICA stenosis bilaterally per carotid U/S performed 04/30 - Renal Artery Duplex: PENDING Meds: * Start Amlodipine 10mg PO Daily * Start Lisinopril 40mg PO Daily Hypothyroidism - Elevated TSH (5.60) w/ normal Free T4 (1.12) - Meds: Levothyroxine 50mcg Daily Dizziness - Will Consider starting Meclizine vs Valium. Lower Back Pain - Renal duplex: f/u - Tramadol 25mg TID PRN. Prophylaxis - DVT: Heparin SC, SCDs - GI: prilosec 40mg po daily for 8 weeks - CLL, NPO after dinner for colonoscopy As per Dr. Arana; the patient is stable for d/c The patient will continue with the following: amlodipine 10mg daily Aspirin 81mg daily levothyroxine 50mcg daily in the morning on empty stomach lisinopril 40mg PO daily Crestor 5mg PO HS Req to f/u with cardiology for PFO Please f/u with Dr. Welsh regarding your colonscopy you can resume a regular diet All medical management per Dr. Arana.
[2018-06-01] MEDS: Bisacodyl 5mg EC Tab PO SCH (12:15)
--- NOTE | 2018-06-03 08:02 | DS ---
The patient was admitted to the hospital with chief complaint of poor appetite, nausea, and vomiting. The patient was recently discharged from [facility] with the similar issue. The patient showed gradual improvement and discharged. Follow up as outpatient. Chirag Loyola MD
== END 2018-06-01 18:45 | disposition home or self-care (01) | DRG 641 ==
LOC: C.ER 03:11 → C.9E 05:53 → C.5S 06:36 → C.3T 06:37
PROVIDERS: ADMIT Internal Medicine Pulmonary Disease; ATTEND Internal Medicine Pulmonary Disease
PROC: 0DB68ZX Excision of Stomach, Via Natural or Artificial Opening Endoscopic, Diagnostic (ICD-10-PCS; principal; 2018-05-28 10:45)
PROC: 0DBM8ZX Excision of Descending Colon, Via Natural or Artificial Opening Endoscopic, Diagnostic (ICD-10-PCS; 2018-05-29)
PROC: 0DJD8ZZ Inspection of Lower Intestinal Tract, Via Natural or Artificial Opening Endoscopic (ICD-10-PCS; 2018-06-01)
DX: R62.7 Adult failure to thrive (principal); B37.81 Candidal esophagitis; E87.6 Hypokalemia; Q21.1 Atrial septal defect; K29.50 Unspecified chronic gastritis without bleeding; R53.1 Weakness; I10 Essential (primary) hypertension; K57.30 Diverticulosis of large intestine without perforation or abscess without bleeding; K31.89 Other diseases of stomach and duodenum; K44.9 Diaphragmatic hernia without obstruction or gangrene; E03.9 Hypothyroidism, unspecified; I65.23 Occlusion and stenosis of bilateral carotid arteries; K27.9 Peptic ulcer, site unspecified, unspecified as acute or chronic, without hemorrhage or perforation; D64.9 Anemia, unspecified; K64.8 Other hemorrhoids; K64.4 Residual hemorrhoidal skin tags; K52.9 Noninfective gastroenteritis and colitis, unspecified; K63.89 Other specified diseases of intestine; K58.9 Irritable bowel syndrome, unspecified; E78.00 Pure hypercholesterolemia, unspecified; G89.29 Other chronic pain; E78.5 Hyperlipidemia, unspecified; Z86.73 Personal history of transient ischemic attack (TIA), and cerebral infarction without residual deficits; Z87.11 Personal history of peptic ulcer disease; Z86.010 Personal history of colon polyps; Z79.899 Other long term (current) drug therapy; Z79.82 Long term (current) use of aspirin; Z88.5 Allergy status to narcotic agent; Z91.013 Allergy to seafood; Z91.048 Other nonmedicinal substance allergy status; Z90.49 Acquired absence of other specified parts of digestive tract; Z82.49 Family history of ischemic heart disease and other diseases of the circulatory system

== ENCOUNTER 2018-09-17 11:20 | Emergency (ER) | payer MEDICARE, OTHER | END 2018-09-17 13:50 | disposition home or self-care (01) | LOC: C.ER 11:20 ==